=== PATIENT | female | born 1960 | race Asian ===

== ENCOUNTER 2022-03-01 10:09 | Emergency (ER) | payer OTHER ==
[~2022-03-01] VITALS: Ht 160 cm; Wt 62.6 kg
[2022-03-01] MEDS ORDERED: levofloxacin (10:22)
[2022-03-01] MEDS ORDERED: solumedrol (10:22)
--- NOTE | 2022-03-01 10:45 | NUR ---
Dr. Perez at bedside for evaluation.
[2022-03-01 11:02] LABS: HEMATOCRIT 40.3 % (31.2-41.9); MEAN CORPUSCULAR HEMOGLOBIN 28.8 uug (24.7-32.8); MEAN CORPUSCULAR VOLUME 88.6 fL (75.5-95.3); PLATELET COUNT (AUTO) 342 K/uL (179-408)
[2022-03-01 11:11] LABS: ALANINE AMINOTRANSFERASE 55 U/L (14-59); ALKALINE PHOSPHATASE 127 U/L (50-136); ASPARTATE AMINOTRANSFERASE 21 U/L (15-37); BILIRUBIN,DIRECT 0.1 mg/dL (0.0-0.2); BILIRUBIN,TOTAL 0.3 mg/dL (0.2-1.0); CARBON DIOXIDE 26 mmol/L (21-32); CHLORIDE 104 mmol/L (98-107); CREATININE 0.9 mg/dL (0.6-1.3); GLUCOSE 139 mg/dL (74-106); POTASSIUM 3.9 mmol/L (3.5-5.1); TOTAL PROTEIN, SERUM 7.7 g/dL (6.4-8.2); UREA NITROGEN, BLOOD 15 mg/dL (7-18)
[2022-03-01] MEDS ORDERED: ASPIRIN 325 MG TABLET PO ONE (13:15)
[2022-03-01] MEDS ORDERED: ASPIRIN 325 MG TABLET ONE (13:46)
--- NOTE | 2022-03-01 14:00 | NUR ---
Patient discharged to home in stable condition. Written and verbal after care instructions given. Patient verbalizes understanding of instructions. Stressed follow up or return to ER for worsening s/s.
[2022-03-01 15:40] VITALS: BP 123/81
== END 2022-03-01 15:41 | disposition home or self-care (01) ==
LOC: ER 10:09
DX: R07.9 Chest pain, unspecified (principal); R00.2 Palpitations
CPT/HCPCS: 36415; 71045; 84484; 85025; 93005; A4663

== ENCOUNTER 2023-02-23 15:56 | Emergency (ER) | payer OTHER ==
[~2023-02-23 15:56] MED LIST: levofloxacin; solumedrol
== END 2023-02-23 17:51 | disposition left against medical advice (07) ==
LOC: ER 16:00
DX: Z53.21 Procedure and treatment not carried out due to patient leaving prior to being seen by health care provider (principal)